=== PATIENT | female | born 1985 | race Two or more races ===

== ENCOUNTER 2020-04-30 10:41 | Inpatient (IN) | payer OTHER ==
[~2020-04-30] VITALS: Ht 165.1 cm; Wt 86.2 kg
[~2020-04-30 10:41] MED LIST: [UNRECOGNIZED DRUG - OTHER]
[2020-05-01] MEDS ORDERED: OBTREX DHA COM1 EACH (08:20)
[2020-05-01] MEDS ORDERED: ELINEST1 EACH (08:21)
== END 2020-05-02 12:12 | disposition home or self-care (01) | DRG 807 ==
LOC: OB/GYN 10:41 → LDR 10:41 → OB/GYN 15:32
PROVIDERS: ADMIT Obstetrics & Gynecology; ATTEND Obstetrics & Gynecology
PROC: 10E0XZZ Delivery of Products of Conception, External Approach (ICD-10-PCS; principal; 2020-04-30)
PROC: 0KQM0ZZ Repair Perineum Muscle, Open Approach (ICD-10-PCS; 2020-04-30)
PROC: 4A1HXFZ Monitoring of Products of Conception, Cardiac Rhythm, External Approach (ICD-10-PCS; 2020-04-30)
DX: O70.1 Second degree perineal laceration during delivery (principal); Z37.0 Single live birth; Z3A.38 38 weeks gestation of pregnancy; Z20.828 Contact with and (suspected) exposure to other viral communicable diseases